=== PATIENT | female | born 1980 | race Caucasian/White ===

== ENCOUNTER 2017-12-09 04:47 | Emergency (ER) | payer BC, OTHER ==
[2017-12-09] MEDS ORDERED: Sodium Chloride 0.9% 1,000 ML IV ONE ×2 (04:50→05:29)
[2017-12-09] MEDS ORDERED: Ondansetron 4 MG/2 ML SDV IVPUSH ONE (04:50)
--- NOTE | 2017-12-09 04:51 | EDM.PDOC ---
<Mickey Douglas - Last Filed: 12/09/17 07:02> ED HPI GENERAL MEDICAL PROBLEM - General Chief Complaint: Gastrointestinal Problem Stated Complaint: THROWING UP Time Seen by Provider: 12/09/17 04:50 Source of Information: Reports: Patient - History of Present Illness INITIAL COMMENTS - FREE TEXT/NARRATIVE: HISTORY AND PHYSICAL: History of present illness: [37-year-old female presents with nausea in she states she is 6 weeks LMP uncertain dates 10/26/17 Patient has 5 out of 10 crampy abdominal pain no vaginal fluid leakage low back pain vaginal bleeding spotting or discharge She has a history of 1 miscarriage and 3 live normal vaginal deliveries at term ] Review of systems: As per history of present illness and below otherwise all systems reviewed and negative. Past medical history: As per history of present illness and as reviewed below otherwise noncontributory. Surgical history: As per history of present illness and as reviewed below otherwise noncontributory. Social history: No reported history of drug or alcohol abuse. Family history: As per history of present illness and as reviewed below otherwise noncontributory. Physical exam: HEENT: Atraumatic, normocephalic, pupils reactive, negative for conjunctival pallor or scleral icterus, mucous membranes moist, throat clear, neck supple, nontender, trachea midline. Lungs: Clear to auscultation, breath sounds equal bilaterally, chest nontender. Heart: S1S2, regular, negative for clicks, rubs, or JVD. Abdomen: Soft, nondistended, nontender. Negative for masses or hepatosplenomegaly. Negative for costovertebral tenderness. Pelvis: Stable nontender. Genitourinary: Deferred. Rectal: Deferred. Extremities: Atraumatic, negative for cords or calf pain. Neurovascular unremarkable. Neuro: Awake, alert, oriented. Cranial nerves II through XII unremarkable. Cerebellum unremarkable. Motor and sensory unremarkable throughout. Exam nonfocal. Diagnostics: [CBC CMP hCG Quant ] Therapeutics: [Normal saline bolus 2 L Phenergan 25 mg IM ] Impression: [ 6 week Nausea in ] Patient signed out to 7 AM to follow imaging and disposition Definitive disposition and diagnosis as appropriate pending reevaluation and review of above. Abdomen Pain Score (Numeric/FACES): 8 - Related Data Allergies Allergy/AdvReac Type Severity Reaction Status Date / Time latex Allergy Hives Verified 12/09/17 05:01 ondansetron Allergy Vomiting Verified 12/09/17 05:01 [From Zofran (as hydrochloride)] Course - Vital Signs Last Recorded V/S: Last Vital Signs Temp 36.1 C 12/09/17 05:00 Pulse 68 12/09/17 06:30 Resp 12 12/09/17 06:30 BP 98/51 L 12/09/17 06:30 Pulse Ox 97 12/09/17 06:30 - Orders/Labs/Meds Orders: Active Orders 24 hr Category Date Time Status Abdomen Ltd [US] Stat Exams 12/09/17 06:09 Taken OB Ltd 1 or More Fetus [US] Stat Exams 12/09/17 06:10 Taken UA W/MICROSCOPIC [URIN] Stat Lab 12/09/17 05:50 Ordered Labs: Laboratory Tests 12/09/17 12/09/17 12/09/17 Range/Units 04:58 04:58 04:58 WBC 13.56 H (4.0-11.0) K/uL RBC 5.10 (4.30-5.90) M/uL Hgb 12.1 (12.0-16.0) g/dL Hct 37.4 (36.0-46.0) % MCV 73.3 L (80.0-98.0) fL MCH 23.7 L (27.0-32.0) pg MCHC 32.4 (31.0-37.0) g/dL RDW Std Deviation 44.6 (28.0-62.0) fl RDW Coeff of Reshma 17 H (11.0-15.0) % Plt Count 325 (150-400) K/uL MPV 9.30 (7.40-12.00) fL Neut % (Auto) 87.3 H (48.0-80.0) % Lymph % (Auto) 8.3 L (16.0-40.0) % [place] % (Auto) 4.2 (0.0-15.0) % Eos % (Auto) 0.1 (0.0-7.0) % Baso % (Auto) 0.1 (0.0-1.5) % Neut # (Auto) 11.9 H (1.4-5.7) K/uL Lymph # (Auto) 1.1 (0.6-2.4) K/uL [place] # (Auto) 0.6 (0.0-0.8) K/uL Eos # (Auto) 0.0 (0.0-0.7) K/uL Baso # (Auto) 0.0 (0.0-0.1) K/uL Nucleated RBC % 0.0 /100WBC Nucleated RBCs # 0 K/uL Lactate (0.20-2.00) mmol/L Sodium 138 (136-145) mmol/L Potassium 4.0 (3.5-5.1) mmol/L Chloride 103 (98-107) mmol/L Carbon Dioxide 22.3 (21.0-32.0) mmol/L BUN 13 (7.0-18.0) mg/dL Creatinine 0.7 (0.6-1.0) mg/dL Est Cr Clr Drug Dosing 113.16 mL/min Estimated GFR (MDRD) > 60.0 ml/min Glucose 135 H (74-106) mg/dL Calcium 9.6 (8.5-10.1) mg/dL Total Bilirubin 0.2 (0.2-1.0) mg/dL AST 19 (15-37) IU/L ALT 21 (14-63) IU/L Alkaline Phosphatase 71 (46-116) U/L Total Protein 8.0 (6.4-8.2) g/dL Albumin 4.0 (3.4-5.0) g/dL Globulin 4.0 H (2.0-3.5) g/dL Albumin/Globulin Ratio 1.0 L (1.3-2.8) HCG, Quant 81408.0 mIU/mL Urine Color Urine Appearance Urine pH (5.0-8.0) Ur Specific [place] (1.001-1.035) Urine Protein (NEGATIVE) mg/dL Urine Glucose (UA) (NEGATIVE) mg/dL Urine Ketones (NEGATIVE) mg/dL Urine Occult Blood (NEGATIVE) Urine Nitrite (NEGATIVE) Urine Bilirubin (NEGATIVE) Urine Urobilinogen (<2.0) EU/dL Ur Leukocyte Esterase (NEGATIVE) Urine RBC (0-2/HPF) Urine WBC (0-5/HPF) Ur Epithelial Cells (NONE-FEW) Urine Bacteria (NEGATIVE) 12/09/17 12/09/17 Range/Units 04:58 05:50 WBC (4.0-11.0) K/uL RBC (4.30-5.90) M/uL Hgb (12.0-16.0) g/dL Hct (36.0-46.0) % MCV (80.0-98.0) fL MCH (27.0-32.0) pg MCHC (31.0-37.0) g/dL RDW Std Deviation (28.0-62.0) fl RDW Coeff of Reshma (11.0-15.0) % Plt Count (150-400) K/uL MPV (7.40-12.00) fL Neut % (Auto) (48.0-80.0) % Lymph % (Auto) (16.0-40.0) % [place] % (Auto) (0.0-15.0) % Eos % (Auto) (0.0-7.0) % Baso % (Auto) (0.0-1.5) % Neut # (Auto) (1.4-5.7) K/uL Lymph # (Auto) (0.6-2.4) K/uL [place] # (Auto) (0.0-0.8) K/uL Eos # (Auto) (0.0-0.7) K/uL Baso # (Auto) (0.0-0.1) K/uL Nucleated RBC % /100WBC Nucleated RBCs # K/uL Lactate 0.7 (0.20-2.00) mmol/L Sodium (136-145) mmol/L Potassium (3.5-5.1) mmol/L Chloride (98-107) mmol/L Carbon Dioxide (21.0-32.0) mmol/L BUN (7.0-18.0) mg/dL Creatinine (0.6-1.0) mg/dL Est Cr Clr Drug Dosing mL/min Estimated GFR (MDRD) ml/min Glucose (74-106) mg/dL Calcium (8.5-10.1) mg/dL Total Bilirubin (0.2-1.0) mg/dL AST (15-37) IU/L ALT (14-63) IU/L Alkaline Phosphatase (46-116) U/L Total Protein (6.4-8.2) g/dL Albumin (3.4-5.0) g/dL Globulin (2.0-3.5) g/dL Albumin/Globulin Ratio (1.3-2.8) HCG, Quant mIU/mL Urine Color YELLOW Urine Appearance CLEAR Urine pH 6.0 (5.0-8.0) Ur Specific [place] >= 1.030 (1.001-1.035) Urine Protein TRACE (NEGATIVE) mg/dL Urine Glucose (UA) NEGATIVE (NEGATIVE) mg/dL Urine Ketones 40 H (NEGATIVE) mg/dL Urine Occult Blood NEGATIVE (NEGATIVE) Urine Nitrite NEGATIVE (NEGATIVE) Urine Bilirubin NEGATIVE (NEGATIVE) Urine Urobilinogen 0.2 (<2.0) EU/dL Ur Leukocyte Esterase NEGATIVE (NEGATIVE) Urine RBC 0-2 (0-2/HPF) Urine WBC 1-2 (0-5/HPF) Ur Epithelial Cells FEW (NONE-FEW) Urine Bacteria FEW (NEGATIVE) Meds: Medications Discontinued Medications Generic Name Dose Route Start Last Admin Trade Name Freq PRN Reason Stop Dose Admin Sodium Chloride 1,000 mls @ 999 mls/hr 12/09/17 04:50 12/09/17 05:04 Normal Saline IV 12/09/17 05:50 999 mls/hr STAT ONE Administration Sodium Chloride 1,000 mls @ 999 mls/hr 12/09/17 05:29 12/09/17 06:04 Normal Saline IV 12/09/17 06:29 999 mls/hr STAT ONE Administration Ondansetron HCl 8 mg 12/09/17 04:50 12/09/17 05:04 Zofran IVPUSH 12/09/17 04:51 Not Given ONETIME ONE Promethazine HCl 25 mg 12/09/17 04:59 12/09/17 05:05 Phenergan IM 12/09/17 05:00 25 mg ONETIME ONE Administration Departure - Departure Disposition: Home, Self-Care 01 Clinical Impression: Abdominal pain, First trimester - Discharge Information Referrals: PCP,None [Primary Care Provider] - Forms: ED Department Discharge Additional Instructions: The following information is given to patients seen in the emergency department who are being discharged to home. This information is to outline your options for follow-up care. We provide all patients seen in our emergency department with a follow-up referral. The need for follow-up, as well as the timing and circumstances, are variable depending upon the specifics of your emergency department visit. If you don't have a primary care physician on staff, we will provide you with a referral. We always advise you to contact your personal physician following an emergency department visit to inform them of the circumstance of the visit and for follow-up with them and/or the need for any referrals to a consulting specialist. The emergency department will also refer you to a specialist when appropriate. This referral assures that you have the opportunity for followup care with a specialist. All of these measure are taken in an effort to provide you with optimal care, which includes your followup. Under all circumstances we always encourage you to contact your private physician who remains a resource for coordinating your care. When calling for followup care, please make the office aware that this follow-up is from your recent emergency room visit. If for any reason you are refused follow-up, please contact the [facility] emergency department at and ask to speak to the emergency department charge nurse. [facility] [address] [place] [address] [address] [place] [address] [facility] Specialty Care-General Surgery Professional Building [address] [place] [address] [address] [place], [place] [id number] Please follow your symptoms very closely and return to ER as needed and as we discussed. These contact her provider in [place] for further care and evaluation and return here for any concerns. <Ayana Robles - Last Filed: 12/09/17 08:12> ED HPI GENERAL MEDICAL PROBLEM - History of Present Illness INITIAL COMMENTS - FREE TEXT/NARRATIVE: This is Dr. Robles dictating an addendum note as I assumed care of this case at 7 AM. Patient is a 4 para 1021 who follows with an OB in [place] and presents with this discomfort in the right lower quadrant. She says the pain started last evening at 10 PM and she describes it to me as an achy deep pain is not sharp and does not radiate. She has no urinary complaints and has no significant surgical or GI history. Currently she says she is feeling better and she is aware of the slight elevation in the WBC count of 13.5 and we are currently awaiting her ultrasound reports. On my exam she is minimally tender on deep palpation in the right lower quadrant without rebound or guarding. 0802: All testing results were discussed with the patient and with Dr. Forman our surgeon on-call who feels that expected management is appropriate and close follow-up with her OB M.D. The patient is aware of things to look out for and reasons to return to the ED as well as close follow-up with her provider and if the pain persists she may need an MRI. She is comfortable with this care plan and will be discharged home. She is currently pain-free ED ROS GENERAL - Review of Systems Review Of Systems: ROS reveals no pertinent complaints other than HPI. ED EXAM, GENERAL - Physical Exam Exam: See Below (See dictation) Departure - Departure Time of Disposition: 08:11 Condition: Good
[2017-12-09] MEDS ORDERED: Promethazine 25 MG/ML SDV IM ONE (04:59)
[2017-12-09 05:25] LABS: CHLORIDE,CL 103 mmol/L (98-107); SODIUM,NA 138 mmol/L (136-145)
--- NOTE | 2017-12-10 14:20 | US ---
EXAM DATE: 12/09/17 PATIENT'S AGE: 37 Patient: MUKUND JACOBS Facility: [place], [place] Site . Site : 1980 Study: US Abdomen [id number]/22/2018 7:10:17 AM Ordering Physician: Medardo Arevalo Final Report: HISTORY: Abdominal pain. COMPARISON: None. FINDINGS: The liver demonstrates normal echogenicity. No gallstones, gallbladder wall thickening or pericholecystic fluid. Sonographic Osborn`s sign negative. No intra or extrahepatic biliary dilation. The common duct is measured at 2 mm. The right kidney measures 9.2 cm in length. No hydronephrosis. The visualized pancreas is within normal. IMPRESSION: Negative ultrasound. Dictated by Caren Maria MD @ Dec 09 2017 7:13AM (Electronic Signature) Report Signed by Proxy. AGUSTO
--- NOTE | 2017-12-10 14:21 | US ---
EXAM DATE: 12/09/17 PATIENT'S AGE: 37 Patient: MUKUND JACOBS Facility: [place], [place] Site . Site : 1980 Study: US OB Pelvis [id number]/22/2018 7:11:27 AM Ordering Physician: Medardo Arevalo Final Report: Addendum: Images labeled right lower quadrant show a tubular structure measured at 0.7 cm , possibly the appendix however this is not certain. No adjacent fluid or inflammatory changes. Dictated by Caren Maria MD @ Dec 09 2017 7:52AM (Electronic Signature) Report Signed by Proxy. AGUSTO
== END 2017-12-09 08:47 | disposition home or self-care (01) ==
LOC: MW.ED 04:47
DX: O99.89 Other specified diseases and conditions complicating pregnancy, childbirth and the puerperium (principal); R10.31 Right lower quadrant pain; Z3A.01 Less than 8 weeks gestation of pregnancy; Z91.040 Latex allergy status; Z88.8 Allergy status to other drugs, medicaments and biological substances
CPT/HCPCS: 76705; 76815; 80053; 81001; 83605; 84702; 85025; 96360; 96372; 99284; J2550; J7040

== ENCOUNTER 2018-02-05 20:36 | Observation (INO) | payer BC ==
[2018-02-05] MEDS ORDERED: Sodium Chloride 0.9% 1,000 ML IV ONE ×2 (20:54→22:13)
--- NOTE | 2018-02-05 20:58 | EDM.PDOC ---
ED HPI GENERAL MEDICAL PROBLEM - General Chief Complaint: Abdominal Pain Stated Complaint: 15 WEEKS PREG- CAN'T STOP VOMITING Time Seen by Provider: 02/05/18 20:45 Source of Information: Reports: Patient History Limitations: Reports: No Limitations - History of Present Illness INITIAL COMMENTS - FREE TEXT/NARRATIVE: HISTORY AND PHYSICAL: History of present illness: 37-year-old A1 16 week female presenting the emergency department with 1 day of intractable nausea/vomiting, and cramping. Patient states that this morning and have crampy abdominal pain with associated nausea and vomiting. Throughout the day progressively got worse point where she is not able to keep anything down. Patient denies any vaginal discharge, bleeding, or pain. States that this happens during all her pregnancies. Was unable to keep down her Diclegis for her nausea so came in for further evaluation. Does reports some some urgency with urination but denies any overt burning. Denies any fever, chills, diarrhea, sore throat, or other signs of systemic infection. Currently denies any chest pain, palpitations, shortness breath, syncopal episodes, or focal neurologic deficits. Review of systems: As per history of present illness and below otherwise all systems reviewed and negative. Past medical history: As per history of present illness and as reviewed below otherwise noncontributory. Surgical history: As per history of present illness and as reviewed below otherwise noncontributory. Social history: No reported history of drug or alcohol abuse. Family history: As per history of present illness and as reviewed below otherwise noncontributory. Physical exam: HEENT: Atraumatic, normocephalic, pupils reactive, negative for conjunctival pallor or scleral icterus, mucous membranes moist, throat clear, neck supple, nontender, trachea midline. Lungs: Clear to auscultation, breath sounds equal bilaterally, chest nontender. Heart: S1S2, regular, negative for clicks, rubs, or JVD. Abdomen: Gravid abdomen Soft, generalized tenderness throughout. Negative for masses or hepatosplenomegaly. Negative for costovertebral tenderness. Pelvis: Stable nontender. Genitourinary: Deferred. Rectal: Deferred. Extremities: Atraumatic, negative for cords or calf pain. Neurovascular unremarkable. Neuro: Awake, alert, oriented. Cranial nerves II through XII unremarkable. Cerebellum unremarkable. Motor and sensory unremarkable throughout. Exam nonfocal. Diagnostics: UA/UC, urine hCG Quant, CBC, CMP Therapeutics: 1 L normal saline x2, 1 L LR 1, 25 mg IM Phenergan 2, Impression: Hyperemesis Nausea and vomiting in 16 week Plan: Patient was given a total of 3 L of IV fluids as well as a total of 80 mg of Phenergan IM. Patient continued to have nausea and episodes of vomiting. She was unable to keep fluids down so Dr. Wheeler, hospitalist was called on patient. He accepted her for hyperemesis. Patient did have mild leukocytosis most likely stress reaction from her vomiting. She was afebrile throughout her stay and had no symptoms or signs of infection. Of note patient is allergic to Zofran. Lower Abdomen Pain Score (Numeric/FACES): 6 - Related Data Allergies Allergy/AdvReac Type Severity Reaction Status Date / Time latex Allergy Hives Verified 02/05/18 20:44 ondansetron Allergy Vomiting Verified 02/05/18 20:44 [From Zofran (as hydrochloride)] Home Meds: Home Meds Doxylamine/Pyridoxine HCl [Maren Holliday 10-10 mg Tablet] 10 mg PO QID PRN [History] Past Medical History HEENT History: Reports: None Cardiovascular History: Reports: None Respiratory History: Reports: None Gastrointestinal History: Reports: None Genitourinary History: Reports: None ASSISTANT COUNSEL History: Reports: Musculoskeletal History: Reports: None Neurological History: Reports: None Psychiatric History: Reports: None Endocrine/Metabolic History: Reports: None Hematologic History: Reports: None Immunologic History: Reports: None Oncologic (Cancer) History: Reports: None Dermatologic History: Reports: None - Infectious Disease History Infectious Disease History: Reports: None - Past Surgical History Head Surgeries/Procedures: Reports: None Social & Family History - Family History Family Medical History: Noncontributory - Tobacco Use Smoking Status *Q: Never Smoker - Caffeine Use Caffeine Use: Reports: Coffee - Recreational Drug Use Recreational Drug Use: No ED ROS GENERAL - Review of Systems Review Of Systems: ROS reveals no pertinent complaints other than HPI. ED EXAM, GENERAL - Physical Exam Exam: See Below Course - Vital Signs Last Recorded V/S: Last Vital Signs Temp 98 F 02/05/18 23:58 Pulse 75 02/05/18 23:58 Resp 18 02/05/18 23:58 BP 107/71 02/05/18 23:58 Pulse Ox 98 02/05/18 22:41 - Orders/Labs/Meds Orders: Active Orders 24 hr Category Date Time Status CULTURE URINE [RM] Stat Lab 02/05/18 21:00 Ordered UA W/MICROSCOPIC [URIN] Stat Lab 02/05/18 21:00 Ordered Labs: Laboratory Tests 02/05/18 02/05/18 02/05/18 Range/Units 21:00 21:00 21:26 WBC (4.0-11.0) K/uL RBC (4.30-5.90) M/uL Hgb (12.0-16.0) g/dL Hct (36.0-46.0) % MCV (80.0-98.0) fL MCH (27.0-32.0) pg MCHC (31.0-37.0) g/dL RDW Std Deviation (28.0-62.0) fl RDW Coeff of Reshma (11.0-15.0) % Plt Count (150-400) K/uL MPV (7.40-12.00) fL Neut % (Auto) (48.0-80.0) % Lymph % (Auto) (16.0-40.0) % [place] % (Auto) (0.0-15.0) % Eos % (Auto) (0.0-7.0) % Baso % (Auto) (0.0-1.5) % Neut # (Auto) (1.4-5.7) K/uL Lymph # (Auto) (0.6-2.4) K/uL [place] # (Auto) (0.0-0.8) K/uL Eos # (Auto) (0.0-0.7) K/uL Baso # (Auto) (0.0-0.1) K/uL Nucleated RBC % /100WBC Nucleated RBCs # K/uL Sodium 136 (136-145) mmol/L Potassium 3.9 (3.5-5.1) mmol/L Chloride 103 (98-107) mmol/L Carbon Dioxide 21.4 (21.0-32.0) mmol/L BUN 11 (7.0-18.0) mg/dL Creatinine 0.7 (0.6-1.0) mg/dL Est Cr Clr Drug Dosing 116.47 mL/min Estimated GFR (MDRD) > 60.0 ml/min Glucose 101 (74-106) mg/dL Calcium 8.9 (8.5-10.1) mg/dL Total Bilirubin 0.3 (0.2-1.0) mg/dL AST 16 (15-37) IU/L ALT 15 (14-63) IU/L Alkaline Phosphatase 53 (46-116) U/L Total Protein 7.2 (6.4-8.2) g/dL Albumin 3.2 L (3.4-5.0) g/dL Globulin 4.0 H (2.0-3.5) g/dL Albumin/Globulin Ratio 0.8 L (1.3-2.8) Lipase 108 (73-393) U/L HCG, Quant 33119.0 mIU/mL Urine Color YELLOW Urine Appearance CLEAR Urine pH 6.0 (5.0-8.0) Ur Specific [place] >= 1.030 (1.001-1.035) Urine Protein NEGATIVE (NEGATIVE) mg/dL Urine Glucose (UA) NEGATIVE (NEGATIVE) mg/dL Urine Ketones >=80 (NEGATIVE) mg/dL Urine Occult Blood NEGATIVE (NEGATIVE) Urine Nitrite NEGATIVE (NEGATIVE) Urine Bilirubin NEGATIVE (NEGATIVE) Urine Urobilinogen 0.2 (<2.0) EU/dL Ur Leukocyte Esterase NEGATIVE (NEGATIVE) Urine RBC 0-1 (0-2/HPF) Urine WBC 2-3 (0-5/HPF) Ur Epithelial Cells FEW (NONE-FEW) Amorphous Sediment FEW (NEGATIVE) Urine Bacteria FEW (NEGATIVE) Urine Mucus RARE (NONE-MOD) 02/05/18 Range/Units 21:50 WBC 15.18 H (4.0-11.0) K/uL RBC 4.84 (4.30-5.90) M/uL Hgb 12.0 (12.0-16.0) g/dL Hct 36.6 (36.0-46.0) % MCV 75.6 L (80.0-98.0) fL MCH 24.8 L (27.0-32.0) pg MCHC 32.8 (31.0-37.0) g/dL RDW Std Deviation 54.1 (28.0-62.0) fl RDW Coeff of Reshma 20 H (11.0-15.0) % Plt Count 245 (150-400) K/uL MPV 10.00 (7.40-12.00) fL Neut % (Auto) 84.5 H (48.0-80.0) % Lymph % (Auto) 11.5 L (16.0-40.0) % [place] % (Auto) 3.8 (0.0-15.0) % Eos % (Auto) 0.1 (0.0-7.0) % Baso % (Auto) 0.1 (0.0-1.5) % Neut # (Auto) 12.8 H (1.4-5.7) K/uL Lymph # (Auto) 1.8 (0.6-2.4) K/uL [place] # (Auto) 0.6 (0.0-0.8) K/uL Eos # (Auto) 0.0 (0.0-0.7) K/uL Baso # (Auto) 0.0 (0.0-0.1) K/uL Nucleated RBC % 0.0 /100WBC Nucleated RBCs # 0 K/uL Sodium (136-145) mmol/L Potassium (3.5-5.1) mmol/L Chloride (98-107) mmol/L Carbon Dioxide (21.0-32.0) mmol/L BUN (7.0-18.0) mg/dL Creatinine (0.6-1.0) mg/dL Est Cr Clr Drug Dosing mL/min Estimated GFR (MDRD) ml/min Glucose (74-106) mg/dL Calcium (8.5-10.1) mg/dL Total Bilirubin (0.2-1.0) mg/dL AST (15-37) IU/L ALT (14-63) IU/L Alkaline Phosphatase (46-116) U/L Total Protein (6.4-8.2) g/dL Albumin (3.4-5.0) g/dL Globulin (2.0-3.5) g/dL Albumin/Globulin Ratio (1.3-2.8) Lipase (73-393) U/L HCG, Quant mIU/mL Urine Color Urine Appearance Urine pH (5.0-8.0) Ur Specific [place] (1.001-1.035) Urine Protein (NEGATIVE) mg/dL Urine Glucose (UA) (NEGATIVE) mg/dL Urine Ketones (NEGATIVE) mg/dL Urine Occult Blood (NEGATIVE) Urine Nitrite (NEGATIVE) Urine Bilirubin (NEGATIVE) Urine Urobilinogen (<2.0) EU/dL Ur Leukocyte Esterase (NEGATIVE) Urine RBC (0-2/HPF) Urine WBC (0-5/HPF) Ur Epithelial Cells (NONE-FEW) Amorphous Sediment (NEGATIVE) Urine Bacteria (NEGATIVE) Urine Mucus (NONE-MOD) Meds: Medications Discontinued Medications Generic Name Dose Route Start Last Admin Trade Name Freq PRN Reason Stop Dose Admin Sodium Chloride 1,000 mls @ 999 mls/hr 02/05/18 20:54 02/05/18 21:08 Normal Saline IV 02/05/18 21:54 999 mls/hr STAT ONE Administration Sodium Chloride 1,000 mls @ 999 mls/hr 02/05/18 22:13 02/05/18 22:40 Normal Saline IV 02/05/18 23:13 999 mls/hr STAT ONE Administration Lactated Ringer's 1,000 mls @ 999 mls/hr 02/05/18 23:47 02/05/18 23:55 Ringers, Lactated IV 02/06/18 00:47 999 mls/hr .BOLUS ONE Administration Promethazine HCl 25 mg 02/05/18 21:16 02/05/18 21:22 Phenergan IM 02/05/18 21:17 25 mg ONETIME ONE Administration Promethazine HCl 25 mg 02/05/18 22:59 02/05/18 23:17 Phenergan IM 02/05/18 23:00 25 mg ONETIME ONE Administration Departure - Departure Time of Disposition: 01:15 Disposition: Admitted As Inpatient 68 Condition: Good Clinical Impression: Hyperemesis arising during - Discharge Information Referrals: Isaias Ramirez MD [Primary Care Provider] - Forms: ED Department Discharge - My Orders Last 24 Hours: My Active Orders 02/05/18 21:00 CULTURE URINE [RM] Stat UA W/MICROSCOPIC [URIN] Stat - Assessment/Plan Last 24 Hours: My Active Orders 02/05/18 21:00 CULTURE URINE [RM] Stat UA W/MICROSCOPIC [URIN] Stat
[2018-02-05] MEDS ORDERED: Promethazine 25 MG/ML SDV IM ONE ×2 (21:16→22:59)
[2018-02-05] MEDS ORDERED: Lactated Ringers 1,000 ML IV ONE (23:47)
[2018-02-06 00:27] LABS: CHLORIDE,CL 103 mmol/L (98-107); SODIUM,NA 136 mmol/L (136-145)
[2018-02-06] MEDS ORDERED: Promethazine 25 MG Tab PO PRN (02:33)
[2018-02-06] MEDS ORDERED: Sodium Chloride 0.9% 1,000 ML IV SCH (02:45)
[2018-02-06 08:05] LABS: CHLORIDE,CL 108 mmol/L (98-107); SODIUM,NA 139 mmol/L (136-145)
--- NOTE | 2018-02-06 09:14 | PCM.HP ---
H&P History of Present Illness - General Date of Service: 02/06/18 Admit Problem/Dx: Admission Diagnosis/Problem Admission Diagnosis/Problem Hyperemesis gravidarum - History of Present Illness Initial Comments - Free Text/Narative: 37-year-old A1 16 week female presenting with one day history of nausea and vomiting. Patient reports these symptoms with past pregnancies as well. Her antiemetics that she usually takes were not working. She was seen in the ED and noted to be dehydrated with a leukocytosis. She was referred to observation. She has an intolerance to zofran. 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: Musculoskeletal History: Reports: None Neurological History: Reports: None Psychiatric History: Reports: None Endocrine/Metabolic History: Reports: None Hematologic History: Reports: None Immunologic History: Reports: None Oncologic (Cancer) History: Reports: None Dermatologic History: Reports: None - Infectious Disease History Infectious Disease History: Reports: None - Past Surgical History Head Surgeries/Procedures: Reports: None Social & Family History - Family History Family Medical History: Noncontributory - Tobacco Use Smoking Status *Q: Never Smoker - Caffeine Use Caffeine Use: Reports: Coffee - Recreational Drug Use Recreational Drug Use: No H&P Review of Systems - Review of Systems: Review Of Systems: ROS reveals no pertinent complaints other than HPI. Exam - Exam Exam: See Below - Vital Signs Vital Signs: Last Vital Signs Temp 36.6 C 02/05/18 23:58 Pulse 75 02/05/18 23:58 Resp 18 02/05/18 23:58 BP 107/71 02/05/18 23:58 Pulse Ox 98 02/05/18 22:41 Weight: 56.699 kg - Exam General: Alert, Oriented HEENT: Mucosa Moist & [place] Neck: Supple, Trachea Midline Lungs: Clear to Auscultation, Normal Respiratory Effort Cardiovascular: Regular Rate, Regular Rhythm GI/Abdominal Exam: Normal Bowel Sounds, Soft, Non-Tender Extremities: Normal Inspection, Normal Range of Motion, Non-Tender Skin: Warm, Dry, Intact - Patient Data Lab Results Last 24 hrs: Laboratory Results - last 24 hr 02/05/18 02/05/18 02/05/18 Range/Units 21:00 21:00 21:26 WBC (4.0-11.0) K/uL RBC (4.30-5.90) M/uL Hgb (12.0-16.0) g/dL Hct (36.0-46.0) % MCV (80.0-98.0) fL MCH (27.0-32.0) pg MCHC (31.0-37.0) g/dL RDW Std Deviation (28.0-62.0) fl RDW Coeff of Reshma (11.0-15.0) % Plt Count (150-400) K/uL MPV (7.40-12.00) fL Neut % (Auto) (48.0-80.0) % Lymph % (Auto) (16.0-40.0) % [place] % (Auto) (0.0-15.0) % Eos % (Auto) (0.0-7.0) % Baso % (Auto) (0.0-1.5) % Neut # (Auto) (1.4-5.7) K/uL Lymph # (Auto) (0.6-2.4) K/uL [place] # (Auto) (0.0-0.8) K/uL Eos # (Auto) (0.0-0.7) K/uL Baso # (Auto) (0.0-0.1) K/uL Nucleated RBC % /100WBC Nucleated RBCs # K/uL Sodium 136 (136-145) mmol/L Potassium 3.9 (3.5-5.1) mmol/L Chloride 103 (98-107) mmol/L Carbon Dioxide 21.4 (21.0-32.0) mmol/L BUN 11 (7.0-18.0) mg/dL Creatinine 0.7 (0.6-1.0) mg/dL Est Cr Clr Drug Dosing 116.47 mL/min Estimated GFR (MDRD) > 60.0 ml/min Glucose 101 (74-106) mg/dL Calcium 8.9 (8.5-10.1) mg/dL Total Bilirubin 0.3 (0.2-1.0) mg/dL AST 16 (15-37) IU/L ALT 15 (14-63) IU/L Alkaline Phosphatase 53 (46-116) U/L Total Protein 7.2 (6.4-8.2) g/dL Albumin 3.2 L (3.4-5.0) g/dL Globulin 4.0 H (2.0-3.5) g/dL Albumin/Globulin Ratio 0.8 L (1.3-2.8) Lipase 108 (73-393) U/L HCG, Quant 48215.0 mIU/mL Urine Color YELLOW Urine Appearance CLEAR Urine pH 6.0 (5.0-8.0) Ur Specific [place] >= 1.030 (1.001-1.035) Urine Protein NEGATIVE (NEGATIVE) mg/dL Urine Glucose (UA) NEGATIVE (NEGATIVE) mg/dL Urine Ketones >=80 (NEGATIVE) mg/dL Urine Occult Blood NEGATIVE (NEGATIVE) Urine Nitrite NEGATIVE (NEGATIVE) Urine Bilirubin NEGATIVE (NEGATIVE) Urine Urobilinogen 0.2 (<2.0) EU/dL Ur Leukocyte Esterase NEGATIVE (NEGATIVE) Urine RBC 0-1 (0-2/HPF) Urine WBC 2-3 (0-5/HPF) Ur Epithelial Cells FEW (NONE-FEW) Amorphous Sediment FEW (NEGATIVE) Urine Bacteria FEW (NEGATIVE) Urine Mucus RARE (NONE-MOD) 02/05/18 02/06/18 02/06/18 Range/Units 21:50 07:32 07:32 WBC 15.18 H 10.67 (4.0-11.0) K/uL RBC 4.84 4.08 L (4.30-5.90) M/uL Hgb 12.0 9.9 L (12.0-16.0) g/dL Hct 36.6 31.2 L (36.0-46.0) % MCV 75.6 L 76.5 L (80.0-98.0) fL MCH 24.8 L 24.3 L (27.0-32.0) pg MCHC 32.8 31.7 (31.0-37.0) g/dL RDW Std Deviation 54.1 55.1 (28.0-62.0) fl RDW Coeff of Reshma 20 H 20 H (11.0-15.0) % Plt Count 245 208 (150-400) K/uL MPV 10.00 9.50 (7.40-12.00) fL Neut % (Auto) 84.5 H 80.9 H (48.0-80.0) % Lymph % (Auto) 11.5 L 13.8 L (16.0-40.0) % [place] % (Auto) 3.8 5.0 (0.0-15.0) % Eos % (Auto) 0.1 0.3 (0.0-7.0) % Baso % (Auto) 0.1 0.0 (0.0-1.5) % Neut # (Auto) 12.8 H 8.6 H (1.4-5.7) K/uL Lymph # (Auto) 1.8 1.5 (0.6-2.4) K/uL [place] # (Auto) 0.6 0.5 (0.0-0.8) K/uL Eos # (Auto) 0.0 0.0 (0.0-0.7) K/uL Baso # (Auto) 0.0 0.0 (0.0-0.1) K/uL Nucleated RBC % 0.0 0.0 /100WBC Nucleated RBCs # 0 0 K/uL Sodium 139 (136-145) mmol/L Potassium 3.9 (3.5-5.1) mmol/L Chloride 108 H (98-107) mmol/L Carbon Dioxide 23.6 (21.0-32.0) mmol/L BUN 7 (7.0-18.0) mg/dL Creatinine 0.6 (0.6-1.0) mg/dL Est Cr Clr Drug Dosing 117.14 mL/min Estimated GFR (MDRD) > 60.0 ml/min Glucose 85 (74-106) mg/dL Calcium 8.1 L (8.5-10.1) mg/dL Total Bilirubin (0.2-1.0) mg/dL AST (15-37) IU/L ALT (14-63) IU/L Alkaline Phosphatase (46-116) U/L Total Protein (6.4-8.2) g/dL Albumin (3.4-5.0) g/dL Globulin (2.0-3.5) g/dL Albumin/Globulin Ratio (1.3-2.8) Lipase (73-393) U/L HCG, Quant mIU/mL Urine Color Urine Appearance Urine pH (5.0-8.0) Ur Specific [place] (1.001-1.035) Urine Protein (NEGATIVE) mg/dL Urine Glucose (UA) (NEGATIVE) mg/dL Urine Ketones (NEGATIVE) mg/dL Urine Occult Blood (NEGATIVE) Urine Nitrite (NEGATIVE) Urine Bilirubin (NEGATIVE) Urine Urobilinogen (<2.0) EU/dL Ur Leukocyte Esterase (NEGATIVE) Urine RBC (0-2/HPF) Urine WBC (0-5/HPF) Ur Epithelial Cells (NONE-FEW) Amorphous Sediment (NEGATIVE) Urine Bacteria (NEGATIVE) Urine Mucus (NONE-MOD) Result Diagrams: 02/06/18 07:32 02/06/18 07:32 Problem List Initiated/Reviewed/Updated: Yes Orders Last 24hrs: Active Orders 24 hr Category Date Time Status Admission Status [Patient Status] [ADT] Stat ADT 02/06/18 01:18 Active Cardiac Monitoring [RC] . DIRECTED Care 02/06/18 01:18 Active Ready for Discharge [RC] PER UNIT ROUTINE Care 02/06/18 08:54 Ordered Regular Diet [DIET] Diet 02/06/18 Breakfast Active BASIC METABOLIC PANEL,BMP [CHEM] AM Lab 02/07/18 05:11 Ordered CBC WITH AUTO DIFF [HEME] AM Lab 02/07/18 05:11 Ordered CULTURE URINE [RM] Stat Lab 02/05/18 21:00 Ordered UA W/MICROSCOPIC [URIN] Stat Lab 02/05/18 21:00 Ordered Promethazine [Phenergan] Med 02/06/18 02:33 Active 25 mg PO Q6H PRN Sodium Chloride 0.9% [Normal Saline] 1,000 ml Med 02/06/18 02:45 Active IV ASDIRECTED Medication Orders Sodium Chloride (Normal Saline) 1,000 mls @ 125 mls/hr IV ASDIRECTED JOSE ALEJANDRO Last Admin: 02/06/18 03:05 Dose: 125 mls/hr Promethazine HCl (Phenergan) 25 mg PO Q6H PRN PRN Reason: Nausea/Vomiting Last Admin: 02/06/18 03:51 Dose: 25 mg Assessment/Plan Comment:: 37 yo female admitted for hyperemesis gravidarum. Patient was hydrated with IV fluids and treated with phenergan. This morning her nausea has improved and she tolerated and oral breakfast. She is requesting discharge home. She was discharged home to have follow up with Dr. Vega.
== END 2018-02-06 09:40 | disposition home or self-care (01) ==
LOC: MW.ED 20:36 → MW.OB 02-06 01:18
PROVIDERS: ADMIT Internal Medicine; ATTEND Internal Medicine
DX: O21.0 Mild hyperemesis gravidarum (principal); Z3A.16 16 weeks gestation of pregnancy; Z88.0 Allergy status to penicillin; Z91.040 Latex allergy status
CPT/HCPCS: 36415; 80048; 80053; 81001; 83690; 84702; 85025; 87086; 96360; 96361; 96372; 99285; A9270; G0378; J2550; J7040; J7120

== ENCOUNTER 2021-02-18 17:57 | Emergency (ER) | payer BC ==
[2021-02-18] MEDS ORDERED: Prochlorperazine 10 MG/2 ML SDV IVPUSH ONE (18:42)
[2021-02-18] MEDS ORDERED: Sodium Chloride 0.9% 1,000 ML IV ONE (18:42)
[2021-02-18] MEDS ORDERED: Sodium Chloride 0.9% 2.5 ML Syringe FLUSH PRN (18:44)
[2021-02-18] MEDS ORDERED: Sodium Chloride 0.9% 10 ML Syringe FLUSH PRN (18:44)
--- NOTE | 2021-02-18 18:45 | EDM.PDOC ---
ED HPI GENERAL MEDICAL PROBLEM - General Chief Complaint: Gastrointestinal Problem Stated Complaint: NAUSEA Time Seen by Provider: 02/18/21 18:33 Source of Information: Reports: Patient History Limitations: Reports: No Limitations - History of Present Illness INITIAL COMMENTS - FREE TEXT/NARRATIVE: HISTORY AND PHYSICAL: History of present illness: The patient is a 40-year female who presents to the emergency department after nausea that started at 11 AM this morning followed by diarrhea at noon and then vomiting at 1 PM. The patient states that she is very nauseated and feels very dehydrated. She states that she and her family were camping all day yesterday and she was outside with ambient temperature was 104. Patient did state that she had a headache prior to vomiting but that went away when she started vomiting. The patient reports that no one else is sick in her household patient states that she took a dose of Pepto-Bismol but it has not helped. Patient den ies any fever, chills, change in vision, syncope or near syncope. Denies any chest pain, back pain, shortness of breath or cough. Denies any dysuria. Has not noted any blood in urine or stool. Review of systems: As per history of present illness and below otherwise all systems reviewed and negative. Past medical history: As per history of present illness and as reviewed below otherwise nonco ntributory. Surgical history: As per history of present illness and as reviewed below otherwise noncontributory. Social history: See social history for further information Family history: As per history of present illness and as reviewed below otherwise noncontributory. Physical exam: General: Well developed and well nourished. Alert and orientated x 3. Nontoxic in appearance and in no acute distress. Vital signs are stable and have been reviewed by me. Nursing notes were reviewed. HEENT: Atraumatic, normocephalic, pupils equal and reactive bilaterally, negative for conjunctival pallor or scleral icterus, mucous membranes moist, TMs normal bilaterally, throat clear, neck supple, nontender, trachea midline. No drooling or trismus noted. No meningeal signs. No hot potato voice noted. Lungs: Clear to auscultation bilaterally. No wheezes, rales, or rhonchi. Chest nontender. Normal work of breathing, no accessory muscles used. Heart: S1S2, regular rate and rhythm without overt murmur, gallops, or rubs. No JVD. No peripheral edema Abdomen: Soft, nondistended, nontender. Normoactive bowel sounds. Negative for masses or costovertebral tenderness. Skin: Intact, warm, dry. No lesions or rashes noted. Hematologic: No petechiae or purpra. Mucosa appropriate color and normal nail bed color and refill. Extremities: Atraumatic, moves all extremities per self without difficulty or d eficits, negative for cords or calf pain. Neurovascular unremarkable. Neuro: Awake, alert, oriented. Cranial nerves II through XII unremarkable. Cerebellum unremarkable. Motor and sensory unremarkable throughout. Exam nonfocal. Psychiatric: Mood and affect are appropriate. Normal thought process. Answering questions appropriately. Notes: *This patient was seen and evaluated during the 2019 SARS-CoV-2 novel coronavirus pandemic period. Community viral transmission is ongoing at time of this encounter and the emergency department is operating under pandemic response procedures. As stated above the patient is a 40-year-old female that presents to the emergency room with complaints of nausea, vomiting and diarrhea that started today. The patient had been camping yesterday and was in the hot weather all day. She feels dehydrated and thinks that she might have gotten a hold of something rotten. She does indicate that no one else in her family is sick and they all ate the same food. I will treat the patient with IV fluids and Compazine as she is allergic to Zofran. I will obtain a CBC and CMP plus a urinalysis. The patient is agreeable with the plan. The patient CBC and CMP are unremarkable. The patient states her nausea is gone after the Compazine and she is feeling much better after the fluids. The patient now thinks she will be able to urinate. The urinalysis was negative. I will discharge the patient home with a prescription for Compazine 10 mg every 6-8 hours as needed for nausea. The patient is agreeable with this discharge plan I have talked with the patient about today's findings, in addition to providing specific details for plan of care. Reassessment at the time of disposition demonstrates that the patient is in no acute distress. The patient is stable for discharge, counseling was provided and we discussed in great detail signs and symptoms that would prompt them to return to the Emergency Department. Medication, follow up and supportive care measures were reviewed and discussed. Voices understanding and is agreeable to plan of care. Denies any further questions or concerns at this time. Diagnostics: CBC, CMP, hCG urine, UA Therapeutics: IV fluids, Compazine 10 mg Prescription: Compazine 10 mg every 6-8 hours as needed for nausea do not use over 48 hours. #8 Impression: Gastroenteritis Plan: 1. You were evaluated today on an emergent basis. Your complaints of nausea, vomiting, diarrhea which started today were evaluated with blood work which did not show an infection nor dehydration. Your nausea was treated with Compazine 1 0 mg IV and you were giving IV fluids. You felt much better after the Compazine and IV fluids. Start your fluids slowly taking and clear liquids and advancing as tolerated. You can use the Gatorade to keep hydrated. I have prescribed Compazine 10 mg every 6-8 hours as needed for nausea, but do not use this over 48 hours. You can use Imodium which is [id number] for any diarrhea. 2. You can alternate Tylenol and ibuprofen as needed for pain and fever management. 3. We encourage you to follow up with your primary care provider and/or recommended specialist in the next few days for re-evaluation and further care/management. 4. If your symptoms should worsen, new symptoms develop or any of the signs and symptoms we discussed should arise please return to the emergency room or call 911 (if needed). Definitive disposition and diagnosis as appropriate pending reevaluation and review of above. abd Pain Score (Numeric/FACES): 4 - Related Data Allergies Allergy/AdvReac Type Severity Reaction Status Date / Time latex Allergy Hives Verified 02/18/21 18:30 ondansetron Allergy Vomiting Verified 02/18/21 18:30 [From Zofran (as hydrochloride)] Home Meds: Home Meds Prochlorperazine Maleate [Compazine] 10 mg PO Q8HR PRN 2 Days #8 tablet 02/18/21 [Rx] Past Medical History HEENT History: Reports: None Cardiovascular History: Reports: None Respiratory History: Reports: None Gastrointestinal History: Reports: None Genitourinary History: Reports: None [employer]IVER History: Reports: Musculoskeletal History: Reports: None Neurological History: Reports: None Psychiatric History: Reports: None Endocrine/Metabolic History: Reports: None Hematologic History: Reports: None Immunologic History: Reports: None Oncologic (Cancer) History: Reports: None Dermatologic History: Reports: None - Infectious Disease History Infectious Disease History: Reports: None - Past Surgical History Head Surgeries/Procedures: Reports: None Female Surgical History: Reports: Section Social & Family History - Family History Family Medical History: No Pertinent Family History - Caffeine Use Caffeine Use: Reports: Coffee, Energy Drinks, Tea ED ROS GENERAL - Review of Systems Review Of Systems: Comprehensive ROS is negative, except as noted in HPI. ED EXAM, GI/ABD - Physical Exam Exam: See Below (See dictation) Course - Vital Signs Last Recorded V/S: Last Vital Signs Temp 97.4 F 02/18/21 18:30 Pulse 69 02/18/21 18:30 Resp 18 02/18/21 18:30 BP 109/76 02/18/21 18:30 Pulse Ox 99 02/18/21 18:30 - Orders/Labs/Meds Orders: Active Orders 24 hr Category Date Time Status Sodium Chloride 0.9% [Normal Saline] 1,000 ml Med 02/18/21 18:42 Active IV .BOLUS Sodium Chloride 0.9% [Saline Flush] Med 02/18/21 18:44 Active 10 ml FLUSH ASDIRECTED PRN Sodium Chloride 0.9% [Saline Flush] Med 02/18/21 18:44 Active 2.5 ml FLUSH ASDIRECTED PRN Saline Lock Insert [OM.PC] Stat Oth 02/18/21 18:44 Ordered Medication Orders Sodium Chloride (Normal Saline) 1,000 mls @ 999 mls/hr IV .BOLUS ONE Stop: 02/18/21 19:42 Last Admin: 02/18/21 18:50 Dose: 999 mls/hr Documented by: ROMEO Sodium Chloride (Sodium Chloride 0.9% 10 Ml Syringe) 10 ml FLUSH ASDIRECTED PRN PRN Reason: Keep Vein Open Last Admin: 02/18/21 18:50 Dose: 10 ml Documented by: ROMEO Sodium Chloride (Sodium Chloride 0.9% 2.5 Ml Syringe) 2.5 ml FLUSH ASDIRECTED PRN PRN Reason: Keep Vein Open Last Admin: 02/18/21 18:50 Dose: 2.5 ml Documented by: ROMEO Labs: Laboratory Tests 02/18/21 02/18/21 02/18/21 Range/Units 18:38 18:38 19:30 WBC 8.50 (4.0-11.0) K/uL RBC 5.06 (4.30-5.90) M/uL Hgb 15.1 (12.0-16.0) g/dL Hct 44.5 (36.0-46.0) % MCV 87.9 (80.0-98.0) fL MCH 29.8 (27.0-32.0) pg MCHC 33.9 (31.0-37.0) g/dL RDW Std Deviation 45.5 (28.0-62.0) fl RDW Coeff of Reshma 14 (11.0-15.0) % Plt Count 225 (150-400) K/uL MPV 10.50 (7.40-12.00) fL Neut % (Auto) 75.3 (48.0-80.0) % Lymph % (Auto) 18.8 (16.0-40.0) % Barnes % (Auto) 5.1 (0.0-15.0) % Eos % (Auto) 0.6 (0.0-7.0) % Baso % (Auto) 0.2 (0.0-1.5) % Neut # (Auto) 6.4 H (1.4-5.7) K/uL Lymph # (Auto) 1.6 (0.6-2.4) K/uL Barnes # (Auto) 0.4 (0.0-0.8) K/uL Eos # (Auto) 0.1 (0.0-0.7) K/uL Baso # (Auto) 0.0 (0.0-0.1) K/uL Nucleated RBC % 0.0 /100WBC Nucleated RBCs # 0 K/uL Sodium 140 (136-145) mmol/L Potassium 3.9 (3.5-5.1) mmol/L Chloride 104 (98-107) mmol/L Carbon Dioxide 25.5 (21.0-32.0) mmol/L BUN 10 (7.0-18.0) mg/dL Creatinine 0.7 (0.6-1.0) mg/dL Est Cr Clr Drug Dosing 109.92 mL/min Estimated GFR (MDRD) > 60.0 ml/min Glucose 88 (74-106) mg/dL Calcium 9.5 (8.5-10.1) mg/dL Total Bilirubin 0.5 (0.2-1.0) mg/dL AST 22 (15-37) IU/L ALT 32 (14-63) IU/L Alkaline Phosphatase 76 (46-116) U/L Total Protein 7.9 (6.4-8.2) g/dL Albumin 4.1 (3.4-5.0) g/dL Globulin 3.8 (2.6-4.0) g/dL Albumin/Globulin Ratio 1.1 (0.9-1.6) Urine Color YELLOW Urine Appearance CLEAR Urine pH 6.0 (5.0-8.0) Ur Specific [place] 1.010 (1.001-1.035) Urine Protein NEGATIVE (NEGATIVE) mg/dL Urine Glucose (UA) NEGATIVE (NEGATIVE) mg/dL Urine Ketones 40 H (NEGATIVE) mg/dL Urine Occult Blood NEGATIVE (NEGATIVE) Urine Nitrite NEGATIVE (NEGATIVE) Urine Bilirubin NEGATIVE (NEGATIVE) Urine Urobilinogen 0.2 (<2.0) EU/dL Ur Leukocyte Esterase NEGATIVE (NEGATIVE) Urine HCG, Qual (NEGATIVE) 02/18/21 Range/Units 19:30 WBC (4.0-11.0) K/uL RBC (4.30-5.90) M/uL Hgb (12.0-16.0) g/dL Hct (36.0-46.0) % MCV (80.0-98.0) fL MCH (27.0-32.0) pg MCHC (31.0-37.0) g/dL RDW Std Deviation (28.0-62.0) fl RDW Coeff of Reshma (11.0-15.0) % Plt Count (150-400) K/uL MPV (7.40-12.00) fL Neut % (Auto) (48.0-80.0) % Lymph % (Auto) (16.0-40.0) % Barnes % (Auto) (0.0-15.0) % Eos % (Auto) (0.0-7.0) % Baso % (Auto) (0.0-1.5) % Neut # (Auto) (1.4-5.7) K/uL Lymph # (Auto) (0.6-2.4) K/uL Barnes # (Auto) (0.0-0.8) K/uL Eos # (Auto) (0.0-0.7) K/uL Baso # (Auto) (0.0-0.1) K/uL Nucleated RBC % /100WBC Nucleated RBCs # K/uL Sodium (136-145) mmol/L Potassium (3.5-5.1) mmol/L Chloride (98-107) mmol/L Carbon Dioxide (21.0-32.0) mmol/L BUN (7.0-18.0) mg/dL Creatinine (0.6-1.0) mg/dL Est Cr Clr Drug Dosing mL/min Estimated GFR (MDRD) ml/min Glucose (74-106) mg/dL Calcium (8.5-10.1) mg/dL Total Bilirubin (0.2-1.0) mg/dL AST (15-37) IU/L ALT (14-63) IU/L Alkaline Phosphatase (46-116) U/L Total Protein (6.4-8.2) g/dL Albumin (3.4-5.0) g/dL Globulin (2.6-4.0) g/dL Albumin/Globulin Ratio (0.9-1.6) Urine Color Urine Appearance Urine pH (5.0-8.0) Ur Specific [place] (1.001-1.035) Urine Protein (NEGATIVE) mg/dL Urine Glucose (UA) (NEGATIVE) mg/dL Urine Ketones (NEGATIVE) mg/dL Urine Occult Blood (NEGATIVE) Urine Nitrite (NEGATIVE) Urine Bilirubin (NEGATIVE) Urine Urobilinogen (<2.0) EU/dL Ur Leukocyte Esterase (NEGATIVE) Urine HCG, Qual NEGATIVE (NEGATIVE) Meds: Medications Generic Name Dose Route Start Last Admin Trade Name Freq PRN Reason Stop Dose Admin Sodium Chloride 1,000 mls @ 999 mls/hr 02/18/21 18:42 02/18/21 18:50 Normal Saline IV 02/18/21 19:42 999 mls/hr .BOLUS ONE Administration Sodium Chloride 10 ml 02/18/21 18:44 02/18/21 18:50 Sodium Chloride 0.9% 10 Ml Syringe FLUSH 10 ml ASDIRECTED PRN Administration Keep Vein Open Sodium Chloride 2.5 ml 02/18/21 18:44 02/18/21 18:50 Sodium Chloride 0.9% 2.5 Ml Syringe FLUSH 2.5 ml ASDIRECTED PRN Administration Keep Vein Open Discontinued Medications Generic Name Dose Route Start Last Admin Trade Name Freq PRN Reason Stop Dose Admin Prochlorperazine Edisylate 10 mg 02/18/21 18:42 02/18/21 18:50 Prochlorperazine 10 Mg/2 Ml Sdv IVPUSH 02/18/21 18:43 10 mg ONETIME ONE Administration Departure - Departure Time of Disposition: 19:40 Disposition: Home, Self-Care 01 Clinical Impression: Gastroenteritis - Discharge Information *PRESCRIPTION DRUG MONITORING PROGRAM REVIEWED*: Not Applicable *COPY OF PRESCRIPTION DRUG MONITORING REPORT IN PATIENT JER: Not Applicable Instructions: Viral Gastroenteritis, Adult, [id number] Referrals: Tray Garrido MD [Primary Care Provider] - Forms: ED Department Discharge Additional Instructions: The following information is given to patients seen in the emergency department who are being discharged to home. This information is to outline your options for follow-up care. We provide all patients seen in our emergency department with a follow-up referral. The need for follow-up, as well as the timing and circumstances, are variable depending upon the specifics of your emergency department visit. If you don't have a primary care physician on staff, we will provide you with a referral. We always advise you to contact your personal physician following an emergency department visit to inform them of the circumstance of the visit and for follow-up with them and/or the need for any referrals to a consulting specialist. The emergency department will also refer you to a specialist when appropriate. This referral assures that you have the opportunity for follow-up care with a specialist. All of these measure are taken in an effort to provide you with optimal care, which includes your follow-up. Under all circumstances we always encourage you to contact your private physician who remains a resource for coordinating your care. When calling for follow-up care, please make the office aware that this follow-up is from your recent emergency room visit. If for any reason you are refused follow-up, please contact the [facility] Emergency Department at and asked to speak to the emergency department charge nurse. [facility] [address] [place] [id number] [facility] [address] [place] [id number] Plan: 1. You were evaluated today on an emergent basis. Your complaints of nausea, vomiting, diarrhea which started today were evaluated with blood work which did not show an infection nor dehydration. Your nausea was treated with Compazine 10 mg IV and you were giving IV fluids. You felt much better after the Compazine and IV fluids. Start your fluids slowly taking and clear liquids and advancing as tolerated. You can use the Gatorade to keep hydrated. I have prescribed Compazine 10 mg every 6-8 hours as needed for nausea, but do not use this over 48 hours. You can use Imodium which is [id number] for any diarrhea. 2. You can alternate Tylenol and ibuprofen as needed for pain and fever management. 3. We encourage you to follow up with your primary care provider and/or recommended specialist in the next few days for re-evaluation and further care/management. 4. If your symptoms should worsen, new symptoms develop or any of the signs and symptoms we discussed should arise please return to the emergency room or call 911 (if needed). Sepsis Event Note (ED) - Evaluation Sepsis Screening Result: No Definite Risk - Focused Exam Vital Signs: Vital Signs Temp Pulse Resp BP Pulse Ox 02/18/21 18:30 97.4 F 69 18 109/76 99 - My Orders Last 24 Hours: My Active Orders 02/18/21 18:42 Sodium Chloride 0.9% [Normal Saline] 1,000 ml IV .BOLUS 02/18/21 18:44 Sodium Chloride 0.9% [Saline Flush] 10 ml FLUSH ASDIRECTED PRN Sodium Chloride 0.9% [Saline Flush] 2.5 ml FLUSH ASDIRECTED PRN Saline Lock Insert [OM.PC] Stat - Assessment/Plan Last 24 Hours: My Active Orders 02/18/21 18:42 Sodium Chloride 0.9% [Normal Saline] 1,000 ml IV .BOLUS 02/18/21 18:44 Sodium Chloride 0.9% [Saline Flush] 10 ml FLUSH ASDIRECTED PRN Sodium Chloride 0.9% [Saline Flush] 2.5 ml FLUSH ASDIRECTED PRN Saline Lock Insert [OM.PC] Stat
[2021-02-18 19:06] LABS: BLOOD UREA NITROGEN,BUN 10 mg/dL (7.0-18.0); CARBON DIOXIDE,CO2 25.5 mmol/L (21.0-32.0); CHLORIDE,CL 104 mmol/L (98-107); GLUCOSE RANDOM 88 mg/dL (74-106); POTASSIUM,K 3.9 mmol/L (3.5-5.1); SODIUM,NA 140 mmol/L (136-145)
== END 2021-02-18 19:51 | disposition home or self-care (01) ==
LOC: MW.ED 17:57
DX: K52.9 Noninfective gastroenteritis and colitis, unspecified (principal); Z91.040 Latex allergy status; Z88.8 Allergy status to other drugs, medicaments and biological substances
CPT/HCPCS: 36415; 80053; 81003; 81025; 85025; 96374; 99284; J0780; J7030